=== PATIENT | male | born 1960 | race Caucasian/White ===

== ENCOUNTER 2020-09-27 12:18 | Observation (INO) | payer BC ==
[2020-09-27] MEDS ORDERED: Sodium Chloride 0.9% 1,000 ML IV ONE (12:28)
[2020-09-27] MEDS ORDERED: Iopamidol 612 MG/ML 100 ML Bottle IVPUSH ONE ×2 (12:34→14:13)
[2020-09-27] MEDS ORDERED: Sodium Chloride 0.9% 10 ML Syringe FLUSH PRN ×2 (12:42→14:13)
--- NOTE | 2020-09-27 13:24 | CT ---
CT chest Technique: Multiple axial sections were obtained from above the lung apices inferiorly through the lung bases. Intravenous contrast was utilized. Reconstructed coronal and sagittal images were obtained. Comparison: No prior chest CT study, previous chest x-ray of 01/11/18. Findings: Ascending thoracic aorta shows mildly prominent dimension at 4.0 cm. Descending thoracic aorta measures within normal limits. There is coronary artery calcification seen which appears to be mild. Mediastinum and hilar regions show no adenopathy. No pericardial thickening is seen. There is a vague low density lesion within the upper right lobe of the liver measuring 3.9 cm. Given presence of rib fractures on the right side which are described below this most likely represents a small intraparenchymal liver laceration. Other visualized upper abdominal structures appear within normal limits. Slight atelectasis is seen within the anterior right upper lung. Very slight areas of increased density are seen within the right lung base and right middle lobe which are most likely due to areas of atelectasis. Minimal atelectasis is also noted within the lingula. No pneumothorax is seen. Lungs otherwise are clear with no acute parenchymal change. Prior sternotomy is noted. Bone window settings were obtained. Fractures are noted within the right third through seventh ribs. Fractures show some displacement. No left-sided rib fracture is appreciated. Slight compression deformities are seen within the lower thoracic spine which are felt to be old. Impression: 1. Fractures within the right third through seventh ribs showing mild displacement. 2. Mild areas of atelectasis within the chest. 3. Mild compression deformities within the lower thoracic spine which are felt to be old. 4. Ascending aorta is mildly ectatic at 4.0 cm. 5. Vague low density finding within the upper liver which is nonspecific but given rib fractures this could represent a minimal intraparenchymal laceration measuring 3.9 cm. This finding is felt to represent a grade 2 injury. 6. No findings of pneumothorax or pleural effusions are seen within the chest. Diagnostic code #3
--- NOTE | 2020-09-27 13:46 | EDM.PDOC ---
ED HPI GENERAL MEDICAL PROBLEM - General Chief Complaint: Trauma Stated Complaint: [facility] Time Seen by Provider: 09/27/20 12:27 Source of Information: Reports: Patient, EMS Notes Reviewed History Limitations: Reports: No Limitations - History of Present Illness INITIAL COMMENTS - FREE TEXT/NARRATIVE: Patient presents with blunt chest trauma. Patient was working under his 1 ton pickup and had a rigged up with some change to hold it up. He had put some tire stands underneath just in case to make sure if it would not fall on him. He was doing some welding on the back and and unfortunately the chain broke causing the spring and axles to actually come down on him on his right-sided chest. It broke the lidia that he was laying on. He had lost his breath, no syncope however developed a lot of sweating and diaphoresis. He initially went to the clinic for evaluation and on arrival they were initially worried his vision was low. It returned back to normal after a few minutes and was sent by ambulance here for evaluation. Patient has had a history of coronary bypass graft he can continues to have right-sided rib pain. No lightheadedness or dizziness no he adache no nausea or vomiting no neck pain no numbness tingling or weakness nauseated earlier but not now no vomiting or diarrhea denies any abdominal pain no pelvic pain or extremity injury he does complain of some posterior shoulder blade pain more on the left side than the right side in the back. No numbness tingling or weakness to lower extremities. Chest Pain Score (Numeric/FACES): 3 - Related Data Allergies Allergy/AdvReac Type Severity Reaction Status Date / Time No Known Allergies Allergy Verified 09/27/20 12:29 Home Meds: Home Meds Aspirin [Ecotrin] 81 mg PO DAILY 02/05/18 [History] Clopidogrel Bisulfate [Plavix] 75 mg PO DAILY 02/05/18 [History] Docusate Sodium [Colace] 100 mg PO BID PRN 02/05/18 [History] Glucosamine [Glucosamine Sulfate] 1 cap PO DAILY 02/05/18 [History] Metoprolol Tartrate 12.5 mg PO BID 02/05/18 [History] atorvaSTATin [Lipitor] 20 mg PO BEDTIME 02/05/18 [History] Past Medical History Cardiovascular History: Reports: [place], [place] Musculoskeletal History: Reports: Fracture - Past Surgical History GI Surgical History: Reports: Appendectomy Musculoskeletal Surgical History: Reports: ORIF Social & Family History - Tobacco Use Tobacco Use Status *Q: Never Tobacco User Review of Systems - Review of Systems Review Of Systems: See Below Constitutional: Reports: Diaphoresis Eyes: Denies: Vision Change Ears: Reports: No Symptoms Nose: Reports: No Symptoms Mouth/Throat: Reports: No Symptoms Respiratory: Reports: Shortness of Breath, Pleuritic Chest Pain Cardiovascular: Reports: Chest Pain, Lightheadedness. Denies: Syncope GI/Abdominal: Denies: Abdominal Pain, Diarrhea, Nausea, Vomiting Genitourinary: Denies: Dysuria, Hematuria Musculoskeletal: Reports: Back Pain. Denies: Neck Pain Neurological: Reports: Dizziness. Denies: Headache Psychiatric: Reports: No Symptoms ED EXAM, GENERAL - Physical Exam Exam: See Below Exam Limited By: No Limitations General Appearance: Alert, WD/WN, No Apparent Distress, Mild Distress Eye Exam: Bilateral Eye: EOMI, PERRL Ears: Normal TMs Throat/Mouth: Normal Oropharynx Head: Atraumatic, Normocephalic Neck: Normal Inspection, Supple, Non-Tender, Full Range of Motion. No: Tender Lateral, Tender Midline Respiratory/Chest: No Respiratory Distress, Decreased Breath Sounds, Splinting. No: Rales, Rhonchi Cardiovascular: Normal Peripheral Pulses, Regular Rate, Rhythm, No Edema Peripheral Pulses: 2+: Radial (L), Radial (R) GI/Abdominal: Normal Bowel Sounds, Soft, Non-Tender, No Organomegaly, Pelvis Stable. No: Hepatomegaly Back Exam: Normal Inspection, Paraspinal Tenderness. No: CVA Tenderness (L), CVA Tenderness (R) Extremities: Normal Inspection, Normal Range of Motion Neurological: Alert, Oriented, CN II-XII Intact Psychiatric: Normal Affect Skin Exam: Warm #1 Interpretation EKG Date: 09/27/20 Time: 13:01 Rhythm: NSR Rate (Beats/Min): 79 EKG Interpretation Comments: I reviewed EKG showing sinus rhythm rate of 79 W[place] 176 QRS 1.7 QT corrected 455 Right bundle branch block pattern, nonspecific ST changes noted in the anterior lateral leads PVC noted Course - Vital Signs Text/Narrative:: Trauma alert based on mechanism, initial evaluation had patient go to the CT scanner to rule out chest trauma. Is mainly complaining of anterior lateral chest pain. He was not complaining of any increasing shortness of breath or abdominal pain. Rule out for intrathoracic blunt chest trauma, great vessel injury, rib fractures or sternal fractures, pelvis was stable he did have some right scapular pain. CT scan came back positive for rib fractures question for liver lack would send him back for a formal CT abdomen pelvis. Vital signs are otherwise stable. With 4+ rib fractures and rule out for pulmonary contusion and liver lack will consider hospitalization whether it is here or at a trauma center. I did discuss the case with the trauma surgeon and will need to transfer if there is combination injuries especially liver laceration. Last Recorded V/S: Last Vital Signs Temp 97.3 F 09/27/20 12:25 Pulse 83 09/27/20 12:25 Resp 16 09/27/20 12:25 BP 120/87 09/27/20 12:25 Pulse Ox 83 L 09/27/20 12:25 - Orders/Labs/Meds Orders: Active Orders 24 hr Category Date Time Status EKG Documentation Completion [RC] ASDIRECTED Care 09/27/20 12:28 Active LACTIC ACID [CHEM] Stat Lab 09/27/20 14:38 Ordered UA RFX PAOLO AND CULT IF INDIC [URIN] Stat Lab 09/27/20 14:28 Ordered Sodium Chloride 0.9% [Saline Flush] Med 09/27/20 12:42 Active 10 ml FLUSH ONETIME PRN Sodium Chloride 0.9% [Saline Flush] Med 09/27/20 14:13 Active 10 ml FLUSH ONETIME PRN EKG 12 Lead [EK] Stat Ther 09/27/20 12:27 Ordered Medication Orders Sodium Chloride (Sodium Chloride 0.9% 10 Ml Syringe) 10 ml FLUSH ONETIME PRN PRN Reason: IV FLUSH Last Admin: 09/27/20 14:24 Dose: 10 ml Documented by: JOVI Sodium Chloride (Sodium Chloride 0.9% 10 Ml Syringe) 10 ml FLUSH ONETIME PRN PRN Reason: IV FLUSH Last Admin: 09/27/20 14:17 Dose: 10 ml Documented by: TAYLOR Labs: Laboratory Tests 09/27/20 09/27/20 09/27/20 Range/Units 12:33 12:33 12:33 WBC 18.50 H (4.23-9.07) K/mm3 RBC 5.53 (4.63-6.08) M/mm3 Hgb 15.6 (13.7-17.5) gm/dl Hct 46.6 (40.1-51.0) % MCV 84.3 (79.0-92.2) fl MCH 28.2 (25.7-32.2) pg MCHC 33.5 (32.2-35.5) g/dl RDW Std Deviation 40.9 (35.1-43.9) fL Plt Count 318 (163-337) K/mm3 MPV 9.0 L (9.4-12.3) fl Neut % (Auto) 87.5 H (34.0-67.9) % Lymph % (Auto) 6.8 L (21.8-53.1) % Talbot % (Auto) 5.0 L (5.3-12.2) % Eos % (Auto) 0.1 L (0.8-7.0) Baso % (Auto) 0.2 (0.1-1.2) % Neut # (Auto) 16.17 H (1.78-5.38) K/mm3 Lymph # (Auto) 1.26 L (1.32-3.57) K/mm3 Talbot # (Auto) 0.93 H (0.30-0.82) K/mm3 Eos # (Auto) 0.02 L (0.04-0.54) K/mm3 Baso # (Auto) 0.04 (0.01-0.08) K/mm3 Lactic Acid 2.2 H* (0.4-2.0) mmol/L Troponin I < 0.017 (0.00-0.056) ng/mL White count 18,500 hemoglobin 15 hematocrit 46 platelet count is 318,016 neutrophils lactic acid 2.2 troponin is negative Meds: Medications Generic Name Dose Route Start Last Admin Trade Name Freq PRN Reason Stop Dose Admin Sodium Chloride 10 ml 09/27/20 12:42 09/27/20 14:24 Sodium Chloride 0.9% 10 Ml Syringe FLUSH 10 ml ONETIME PRN Administration IV FLUSH Sodium Chloride 10 ml 09/27/20 14:13 09/27/20 14:17 Sodium Chloride 0.9% 10 Ml Syringe FLUSH 10 ml ONETIME PRN Administration IV FLUSH Discontinued Medications Generic Name Dose Route Start Last Admin Trade Name Freq PRN Reason Stop Dose Admin Sodium Chloride 1,000 mls @ 999 mls/hr 09/27/20 12:28 09/27/20 14:23 Normal Saline IV 09/27/20 13:28 999 mls/hr ONETIME ONE Administration Iopamidol 80 ml 09/27/20 12:34 Iopamidol 612 Mg/Ml 100 Ml Bottle IVPUSH 09/27/20 12:35 ONETIME ONE Iopamidol 50 ml 09/27/20 14:13 09/27/20 14:17 Iopamidol 612 Mg/Ml 50 Ml Sdv IVPUSH 09/27/20 14:14 50 ml ONETIME ONE Administration Iopamidol 100 ml 09/27/20 14:13 09/27/20 14:17 Iopamidol 612 Mg/Ml 100 Ml Bottle IVPUSH 09/27/20 14:14 100 ml ONETIME ONE Administration - Radiology Interpretation Free Text/Narrative:: Reviewed trauma CT report showing ascending thoracic aorta shows mild prominent dimension at 4 cm descending thoracic order measures within normal limits cardiac coronary artery calcification appears to be mild mediastinum hilar regions show no adenopathy no pericardial thickening seen vague low density in the right upper lobe of the liver measuring 3.9 cm given the presence of rib fracture on the right side which are described below this most likely represent presents small parenchymal liver laceration other upper abdominal structures appear normal slight atelectasis is seen in the right anterior upper lung very some slight areas of increased density are seen with the right lung base and right middle lobe which most likely due to areas of atelectasis no pneumothorax noted lungs otherwise clear no acute parenchymal changes prior sternotomy noted fractures are noted in the right third through seventh ribs with some fracture showing some displacement no left-sided rib fractures are noted compression fracture deformity noted to the thoracic spine although appear to be old. CT abdomen pelvis showed more of a liver lesion on the dome of the right lobe this abnormally becomes less apparent on delayed images which makes a primary liver lesion most likely this is most likely due to a hemangioma rather than liver laceration atelectasis in the right lung base noted otherwise no other acute findings noted. CT Results Date: 09/27/20 CT Results Time: 13:16 - Re-Assessments/Exams Free Text/Narrative Re-Assessment/Exam: 09/27/20 15:23 Patient continues to be hemodynamically Imer stable, he is not requesting anything for pain at present. Discussed the case with surgery Dr. Bravo and she agrees to accept patient for admission and will be and evaluate the patient. Departure - Departure Time of Disposition: 15:30 Disposition: Admitted As Inpatient 67 Condition: Fair Clinical Impression: Contusion of back Qualifiers: Encounter type: subsequent encounter Laterality: right Qualified Code(s): S20.221D - Contusion of right back wall of thorax, subsequent encounter Contusion of chest wall Qualifiers: Encounter type: subsequent encounter Laterality: right Qualified Code(s): S20.211D - Contusion of right front wall of thorax, subsequent encounter Fracture of multiple ribs Qualifiers: Encounter type: subsequent encounter Fracture type: closed Laterality: right Fracture healing: with routine healing Qualified Code(s): S22.41XD - Multiple fractures of ribs, right side, subsequent encounter for fracture with routine healing - Discharge Information Referrals: PCP,None [Primary Care Provider] - Forms: ED Department Discharge Sepsis Event Note (ED) - Evaluation Sepsis Screening Result: No Definite Risk - Focused Exam Vital Signs: Vital Signs Temp Pulse Resp BP Pulse Ox 09/27/20 12:25 97.3 F 83 16 120/87 83 L - My Orders Last 24 Hours: My Active Orders 09/27/20 12:27 EKG 12 Lead [EK] Stat 09/27/20 12:28 EKG Documentation Completion [RC] ASDIRECTED 09/27/20 12:42 Sodium Chloride 0.9% [Saline Flush] 10 ml FLUSH ONETIME PRN 09/27/20 14:13 Sodium Chloride 0.9% [Saline Flush] 10 ml FLUSH ONETIME PRN 09/27/20 14:28 UA RFX PAOLO AND CULT IF INDIC [URIN] Stat 09/27/20 14:38 LACTIC ACID [CHEM] Stat - Assessment/Plan Last 24 Hours: My Active Orders 09/27/20 12:27 EKG 12 Lead [EK] Stat 09/27/20 12:28 EKG Documentation Completion [RC] ASDIRECTED 09/27/20 12:42 Sodium Chloride 0.9% [Saline Flush] 10 ml FLUSH ONETIME PRN 09/27/20 14:13 Sodium Chloride 0.9% [Saline Flush] 10 ml FLUSH ONETIME PRN 09/27/20 14:28 UA RFX PAOLO AND CULT IF INDIC [URIN] Stat 09/27/20 14:38 LACTIC ACID [CHEM] Stat
[2020-09-27] MEDS ORDERED: Iopamidol 612 MG/ML 50 ML SDV IVPUSH ONE (14:13)
--- NOTE | 2020-09-27 14:32 | CT ---
CT abdomen and pelvis Technique: Multiple axial sections were obtained from above the dome of the diaphragm inferiorly through the pubic symphysis. Intravenous and oral contrast was utilized. Delayed images were also obtained through the abdomen and pelvis. Reconstructed coronal and sagittal images were also obtained. Findings: Atelectasis is noted within the right lung base. Low density lesion is noted within the dome of the right lobe of the liver. On delayed images this disappears which is somewhat unusual for a laceration. Difficult to exclude a primary liver lesion. Other portions of the liver appear within normal limits. Gallbladder contains no calcified gallstones. Spleen appears normal. No abnormality is seen within the pancreas. Adrenal glands show no nodule. Kidneys show symmetric contrast enhancement with no hydronephrosis or mass being seen. Abdominal aorta shows no aneurysm. No retroperitoneal adenopathy or mesenteric abnormalities are seen. Appendix is seen which is normal. No pelvic mass or adenopathy is seen. No free fluid or inflammatory change is appreciated. Delayed images show contrast within the ureters and within the bladder. Bone window settings were reviewed which show scattered degenerative change within the spine. No acute osseous abnormality is appreciated. Impression: 1. Liver lesion within the dome of the right lobe. This abnormality becomes less apparent on delayed images which makes a primary liver lesion most likely. This is most likely due to hemangioma rather than liver laceration. 2. Atelectasis within the right lung base. 3. Nothing acute is otherwise seen on CT study of the abdomen and pelvis. Diagnostic code #2
--- NOTE | 2020-09-27 16:08 | PCM.HP.2 ---
<Fahad Polo - Last Filed: 09/27/20 16:12> H&P History of Present Illness - Related Data Allergies/Adverse Reactions: Allergies Allergy/AdvReac Type Severity Reaction Status Date / Time No Known Allergies Allergy Verified 09/27/20 12:29 Home Medications: Home Meds Aspirin [Ecotrin] 81 mg PO DAILY 02/05/18 [History] Clopidogrel Bisulfate [Plavix] 75 mg PO DAILY 02/05/18 [History] Docusate Sodium [Colace] 100 mg PO BID PRN 02/05/18 [History] Glucosamine [Glucosamine Sulfate] 1 cap PO DAILY 02/05/18 [History] Metoprolol Tartrate 12.5 mg PO BID 02/05/18 [History] atorvaSTATin [Lipitor] 20 mg PO BEDTIME 02/05/18 [History] Exam - Vital Signs Vital Signs: Last Vital Signs Temp 97.3 F 09/27/20 12:25 Pulse 83 09/27/20 12:25 Resp 16 09/27/20 12:25 BP 120/87 09/27/20 12:25 Pulse Ox 83 L 09/27/20 12:25 - Patient Data Lab Results Last 24 hrs: Laboratory Results - last 24 hr 09/27/20 09/27/20 09/27/20 Range/Units 12:33 12:33 12:33 WBC 18.50 H (4.23-9.07) K/mm3 RBC 5.53 (4.63-6.08) M/mm3 Hgb 15.6 (13.7-17.5) gm/dl Hct 46.6 (40.1-51.0) % MCV 84.3 (79.0-92.2) fl MCH 28.2 (25.7-32.2) pg MCHC 33.5 (32.2-35.5) g/dl RDW Std Deviation 40.9 (35.1-43.9) fL Plt Count 318 (163-337) K/mm3 MPV 9.0 L (9.4-12.3) fl Neut % (Auto) 87.5 H (34.0-67.9) % Lymph % (Auto) 6.8 L (21.8-53.1) % [place] % (Auto) 5.0 L (5.3-12.2) % Eos % (Auto) 0.1 L (0.8-7.0) Baso % (Auto) 0.2 (0.1-1.2) % Neut # (Auto) 16.17 H (1.78-5.38) K/mm3 Lymph # (Auto) 1.26 L (1.32-3.57) K/mm3 [place] # (Auto) 0.93 H (0.30-0.82) K/mm3 Eos # (Auto) 0.02 L (0.04-0.54) K/mm3 Baso # (Auto) 0.04 (0.01-0.08) K/mm3 Lactic Acid 2.2 H* (0.4-2.0) mmol/L Troponin I < 0.017 (0.00-0.056) ng/mL 09/27/20 Range/Units 14:53 WBC (4.23-9.07) K/mm3 RBC (4.63-6.08) M/mm3 Hgb (13.7-17.5) gm/dl Hct (40.1-51.0) % MCV (79.0-92.2) fl MCH (25.7-32.2) pg MCHC (32.2-35.5) g/dl RDW Std Deviation (35.1-43.9) fL Plt Count (163-337) K/mm3 MPV (9.4-12.3) fl Neut % (Auto) (34.0-67.9) % Lymph % (Auto) (21.8-53.1) % [place] % (Auto) (5.3-12.2) % Eos % (Auto) (0.8-7.0) Baso % (Auto) (0.1-1.2) % Neut # (Auto) (1.78-5.38) K/mm3 Lymph # (Auto) (1.32-3.57) K/mm3 [place] # (Auto) (0.30-0.82) K/mm3 Eos # (Auto) (0.04-0.54) K/mm3 Baso # (Auto) (0.01-0.08) K/mm3 Lactic Acid 2.2 H* (0.4-2.0) mmol/L Troponin I (0.00-0.056) ng/mL Result Diagrams: 09/27/20 12:33 Sepsis Event Note - Focused Exam Vital Signs: Vital Signs Temp Pulse Resp BP Pulse Ox 09/27/20 12:25 97.3 F 83 16 120/87 83 L Orders Last 24hrs: Active Orders 24 hr Category Date Time Status EKG Documentation Completion [RC] ASDIRECTED Care 09/27/20 12:28 Active UA RFX PAOLO AND CULT IF INDIC [URIN] Stat Lab 09/27/20 14:28 Ordered Sodium Chloride 0.9% [Saline Flush] Med 09/27/20 12:42 Active 10 ml FLUSH ONETIME PRN Sodium Chloride 0.9% [Saline Flush] Med 09/27/20 14:13 Active 10 ml FLUSH ONETIME PRN EKG 12 Lead [EK] Stat Ther 09/27/20 12:27 Ordered Medication Orders Sodium Chloride (Sodium Chloride 0.9% 10 Ml Syringe) 10 ml FLUSH ONETIME PRN PRN Reason: IV FLUSH Last Admin: 09/27/20 14:24 Dose: 10 ml Documented by: JOVI Sodium Chloride (Sodium Chloride 0.9% 10 Ml Syringe) 10 ml FLUSH ONETIME PRN PRN Reason: IV FLUSH Last Admin: 09/27/20 14:17 Dose: 10 ml Documented by: TAYLOR <Annabelle Fernandez - Last Filed: 09/27/20 16:41> H&P History of Present Illness - General Date of Service: 09/27/20 Source of Information: Patient, Provider History Limitations: Reports: No Limitations - History of Present Illness Initial Comments - Free Text/Narative: The patient is a 60 y/o gentleman who presents after a blunt crushing injury to the torso. He reports having his truck elevated with chains and was working underneath the vehicle when it dropped on him, crushing the rolling creeper he was laying on. He presented to the outpatient clinic for evaluation, reporting that he was concerned about his heart, since he has a history of a CABG 3 years ago. He reports some difficulty in taking a deep breath. He was ambulating after the event. He He was evaluated by the ED provider with a CT of the chest, abdomen and pelvis. He was found to have right rib fractures for ribs 3-7 with some atelectasis. No pleural effusion, lung contusion or pneumothorax noted. Chest Pain Score (Numeric/FACES): 3 Past Medical History Cardiovascular History: Reports: Bypass, [place] Musculoskeletal History: Reports: Fracture - Past Surgical History GI Surgical History: Reports: Appendectomy Musculoskeletal Surgical History: Reports: ORIF Social & Family History - Tobacco Use Tobacco Use Status *Q: Never Tobacco User H&P Review of Systems - Review of Systems: Review Of Systems: See Below General: Reports: No Symptoms HEENT: Reports: No Symptoms Pulmonary: Reports: No Symptoms Cardiovascular: Reports: No Symptoms Gastrointestinal: Reports: No Symptoms Genitourinary: Reports: No Symptoms Musculoskeletal: Reports: No Symptoms Skin: Reports: No Symptoms Psychiatric: Reports: No Symptoms Neurological: Reports: No Symptoms Hematologic/Lymphatic: Reports: No Symptoms Exam - Exam Exam: See Below - Vital Signs Vital Signs: Last Vital Signs Temp 36.3 C 09/27/20 12:25 Pulse 83 09/27/20 12:25 Resp 16 09/27/20 12:25 BP 120/87 09/27/20 12:25 Pulse Ox 83 L 09/27/20 12:25 - Exam Quality Assessment: Supplemental Oxygen General: Alert, Oriented HEENT: Conjunctiva Clear, EOMI Neck: Supple Lungs: Rales (on right posterior lung flood), Wheezing (on right posterior lung flood). No: Normal Respiratory Effort (shallow breathing) Cardiovascular: Regular Rate, Regular Rhythm, Normal S1, Normal S2 GI/Abdominal Exam: Soft, Non-Tender, No Distention Back Exam: Normal Inspection. No: Vertebral Tenderness Skin: Warm, Dry, Intact. No: Ecchymosis Neurological: Cranial Nerves Intact Neuro Extensive - Mental Status: Normal Mood/Affect - Patient Data Lab Results Last 24 hrs: Laboratory Results - last 24 hr 09/27/20 09/27/20 09/27/20 Range/Units 12:33 12:33 12:33 WBC 18.50 H (4.23-9.07) K/mm3 RBC 5.53 (4.63-6.08) M/mm3 Hgb 15.6 (13.7-17.5) gm/dl Hct 46.6 (40.1-51.0) % MCV 84.3 (79.0-92.2) fl MCH 28.2 (25.7-32.2) pg MCHC 33.5 (32.2-35.5) g/dl RDW Std Deviation 40.9 (35.1-43.9) fL Plt Count 318 (163-337) K/mm3 MPV 9.0 L (9.4-12.3) fl Neut % (Auto) 87.5 H (34.0-67.9) % Lymph % (Auto) 6.8 L (21.8-53.1) % [place] % (Auto) 5.0 L (5.3-12.2) % Eos % (Auto) 0.1 L (0.8-7.0) Baso % (Auto) 0.2 (0.1-1.2) % Neut # (Auto) 16.17 H (1.78-5.38) K/mm3 Lymph # (Auto) 1.26 L (1.32-3.57) K/mm3 [place] # (Auto) 0.93 H (0.30-0.82) K/mm3 Eos # (Auto) 0.02 L (0.04-0.54) K/mm3 Baso # (Auto) 0.04 (0.01-0.08) K/mm3 Lactic Acid 2.2 H* (0.4-2.0) mmol/L Troponin I < 0.017 (0.00-0.056) ng/mL 09/27/20 Range/Units 14:53 WBC (4.23-9.07) K/mm3 RBC (4.63-6.08) M/mm3 Hgb (13.7-17.5) gm/dl Hct (40.1-51.0) % MCV (79.0-92.2) fl MCH (25.7-32.2) pg MCHC (32.2-35.5) g/dl RDW Std Deviation (35.1-43.9) fL Plt Count (163-337) K/mm3 MPV (9.4-12.3) fl Neut % (Auto) (34.0-67.9) % Lymph % (Auto) (21.8-53.1) % [place] % (Auto) (5.3-12.2) % Eos % (Auto) (0.8-7.0) Baso % (Auto) (0.1-1.2) % Neut # (Auto) (1.78-5.38) K/mm3 Lymph # (Auto) (1.32-3.57) K/mm3 [place] # (Auto) (0.30-0.82) K/mm3 Eos # (Auto) (0.04-0.54) K/mm3 Baso # (Auto) (0.01-0.08) K/mm3 Lactic Acid 2.2 H* (0.4-2.0) mmol/L Troponin I (0.00-0.056) ng/mL Result Diagrams: 09/27/20 12:33 Sepsis Event Note - Evaluation Sepsis Screening Result: No Definite Risk - Focused Exam Vital Signs: Vital Signs Temp Pulse Resp BP Pulse Ox 09/27/20 12:25 36.3 C 83 16 120/87 83 L *Q Meaningful Use (ADM) - VTE Risk Assess *Q Each Risk Factor Represents 1 Point: Age 41 - 59 years, Obesity ( BMI > 25 kg/m2) Total Score 1 Point Risk Factors: 2 Each Risk Factor Represents 5 Points: Multiple Trauma, Less than 1 Month Total Score 5 Point Risk Factors: 5 - Problem List (1) Contusion of back SNOMED Code(s): 86825754 ICD Code: S20.229A - CONTUSION OF UNSPECIFIED BACK WALL OF THORAX, INIT ENCNTR Status: Acute Current Visit: Yes Qualifiers: Encounter type: subsequent encounter Laterality: right Qualified Code(s): S20.221D - Contusion of right back wall of thorax, subsequent encounter (2) Contusion of chest wall SNOMED Code(s): 03618051 ICD Code: S20.219A - CONTUSION OF UNSPECIFIED FRONT WALL OF THORAX, INIT ENCNTR Status: Acute Current Visit: Yes Qualifiers: Encounter type: subsequent encounter Laterality: right Qualified Code(s): S20.211D - Contusion of right front wall of thorax, subsequent encounter (3) Fracture of multiple ribs SNOMED Code(s): 1376737 ICD Code: S22.49XA - MULTIPLE FRACTURES OF RIBS, UNSP SIDE, INIT FOR CLOS FX Status: Acute Current Visit: Yes Qualifiers: Encounter type: subsequent encounter Fracture type: closed Laterality: right Fracture healing: with routine healing Qualified Code(s): S22.41XD - Multiple fractures of ribs, right side, subsequent encounter for fracture with routine healing Problem List Initiated/Reviewed/Updated: Yes Orders Last 24hrs: Active Orders 24 hr Category Date Time Status EKG Documentation Completion [RC] ASDIRECTED Care 09/27/20 12:28 Active UA RFX PAOLO AND CULT IF INDIC [URIN] Stat Lab 09/27/20 14:28 Ordered Sodium Chloride 0.9% [Saline Flush] Med 09/27/20 12:42 Active 10 ml FLUSH ONETIME PRN Sodium Chloride 0.9% [Saline Flush] Med 09/27/20 14:13 Active 10 ml FLUSH ONETIME PRN EKG 12 Lead [EK] Stat Ther 09/27/20 12:27 Ordered Medication Orders Sodium Chloride (Sodium Chloride 0.9% 10 Ml Syringe) 10 ml FLUSH ONETIME PRN PRN Reason: IV FLUSH Last Admin: 09/27/20 14:24 Dose: 10 ml Documented by: JOVI Sodium Chloride (Sodium Chloride 0.9% 10 Ml Syringe) 10 ml FLUSH ONETIME PRN PRN Reason: IV FLUSH Last Admin: 09/27/20 14:17 Dose: 10 ml Documented by: TAYLOR Assessment/Plan Comment:: 60 y/o gentleman with right rib fractures after crush injury to torso. With established atelectasis, at risk for contusion - recommend observation stay for pain control and monitoring of O2 levels - wean O2 as tolerated - incentive spirometer q1hr - PO pain medication - may have regular diet Annabelle Fernandez MD General surgery
[2020-09-27] MEDS ORDERED: Acetaminophen/oxyCODONE 325-5 MG Tab PO PRN (19:57)
[2020-09-27] MEDS ORDERED: Ondansetron 4 MG Tab.DIS PO PRN (19:59)
[2020-09-27] MEDS ORDERED: HYDROmorphone 0.5 MG/0.5 ML Syringe IVPUSH PRN (19:59)
[2020-09-27] MEDS: Ibuprofen 600 MG Tab PO PRN (20:37)
[2020-09-28] MEDS: Ibuprofen 600 MG Tab PO PRN (04:29)
--- NOTE | 2020-09-28 07:42 | PCM.SURGPN ---
- General Info Date of Service: 09/28/20 Admission Diagnosis/Problem: Rib injury Functional Status: Reports: Pain Controlled, Tolerating Diet, Incentive Spirometry - Patient Data Vitals - Most Recent: Last Vital Signs Temp 36.7 C 09/28/20 04:08 Pulse 65 09/28/20 04:08 Resp 16 09/28/20 04:08 BP 143/81 H 09/28/20 04:08 Pulse Ox 97 09/28/20 04:08 Weight - Most Recent: 126.598 kg I&O - Last 24 Hours: Intake & Output 09/27/20 09/28/20 09/28/20 22:59 06:59 14:59 Intake Total 500 Balance 500 Lab Results Last 24 Hrs: Laboratory Results - last 24 hr 09/27/20 09/27/20 09/27/20 Range/Units 12:33 12:33 12:33 WBC 18.50 H (4.23-9.07) K/mm3 RBC 5.53 (4.63-6.08) M/mm3 Hgb 15.6 (13.7-17.5) gm/dl Hct 46.6 (40.1-51.0) % MCV 84.3 (79.0-92.2) fl MCH 28.2 (25.7-32.2) pg MCHC 33.5 (32.2-35.5) g/dl RDW Std Deviation 40.9 (35.1-43.9) fL Plt Count 318 (163-337) K/mm3 MPV 9.0 L (9.4-12.3) fl Neut % (Auto) 87.5 H (34.0-67.9) % Lymph % (Auto) 6.8 L (21.8-53.1) % [place] % (Auto) 5.0 L (5.3-12.2) % Eos % (Auto) 0.1 L (0.8-7.0) Baso % (Auto) 0.2 (0.1-1.2) % Neut # (Auto) 16.17 H (1.78-5.38) K/mm3 Lymph # (Auto) 1.26 L (1.32-3.57) K/mm3 [place] # (Auto) 0.93 H (0.30-0.82) K/mm3 Eos # (Auto) 0.02 L (0.04-0.54) K/mm3 Baso # (Auto) 0.04 (0.01-0.08) K/mm3 Lactic Acid 2.2 H* (0.4-2.0) mmol/L Troponin I < 0.017 (0.00-0.056) ng/mL Urine Color (Yellow) Urine Appearance (Clear) Urine pH (5.0-8.0) Ur Specific [place] (1.005-1.030) Urine Protein (Negative) Urine Glucose (UA) (Negative) Urine Ketones (Negative) Urine Occult Blood (Negative) Urine Nitrite (Negative) Urine Bilirubin (Negative) Urine Urobilinogen (0.2-1.0) Ur Leukocyte Esterase (Negative) Urine RBC (0-5) /hpf Urine WBC (0-5) /hpf Ur Epithelial Cells (0-5) /hpf Urine Bacteria (FEW) /hpf Urine Mucus (FEW) /hpf SARS-CoV-2 RNA (JORGE A) (NEGATIVE) 09/27/20 09/27/20 09/28/20 Range/Units 14:53 17:43 04:15 WBC (4.23-9.07) K/mm3 RBC (4.63-6.08) M/mm3 Hgb (13.7-17.5) gm/dl Hct (40.1-51.0) % MCV (79.0-92.2) fl MCH (25.7-32.2) pg MCHC (32.2-35.5) g/dl RDW Std Deviation (35.1-43.9) fL Plt Count (163-337) K/mm3 MPV (9.4-12.3) fl Neut % (Auto) (34.0-67.9) % Lymph % (Auto) (21.8-53.1) % [place] % (Auto) (5.3-12.2) % Eos % (Auto) (0.8-7.0) Baso % (Auto) (0.1-1.2) % Neut # (Auto) (1.78-5.38) K/mm3 Lymph # (Auto) (1.32-3.57) K/mm3 [place] # (Auto) (0.30-0.82) K/mm3 Eos # (Auto) (0.04-0.54) K/mm3 Baso # (Auto) (0.01-0.08) K/mm3 Lactic Acid 2.2 H* (0.4-2.0) mmol/L Troponin I (0.00-0.056) ng/mL Urine Color Yellow (Yellow) Urine Appearance Clear (Clear) Urine pH 6.0 (5.0-8.0) Ur Specific [place] > or = 1.030 (1.005-1.030) Urine Protein Trace H (Negative) Urine Glucose (UA) Negative (Negative) Urine Ketones Negative (Negative) Urine Occult Blood Negative (Negative) Urine Nitrite Negative (Negative) Urine Bilirubin Negative (Negative) Urine Urobilinogen 0.2 (0.2-1.0) Ur Leukocyte Esterase Negative (Negative) Urine RBC Not seen (0-5) /hpf Urine WBC 0-5 (0-5) /hpf Ur Epithelial Cells Not seen (0-5) /hpf Urine Bacteria Few (FEW) /hpf Urine Mucus Many H (FEW) /hpf SARS-CoV-2 RNA (JORGE A) Negative (NEGATIVE) Med Orders - Current: Current Medications Hydromorphone HCl (Hydromorphone 0.5 Mg/0.5 Ml Syringe) 0.5 mg IVPUSH Q2H PRN PRN Reason: Breakthrough Pain Ibuprofen (Ibuprofen 600 Mg Tab) 600 mg PO Q6H PRN PRN Reason: Pain (mild 1-3) Last Admin: 09/28/20 04:29 Dose: 600 mg Documented by: Ondansetron HCl (Ondansetron 4 Mg Tab.Dis) 4 mg PO Q6H PRN PRN Reason: Nausea/Vomiting Oxycodone/Acetaminophen (Acetaminophen/Oxycodone 325-5 Mg Tab) 0 tab PO Q4H PRN PRN Reason: Pain (moderate 4-6) Sodium Chloride (Sodium Chloride 0.9% 10 Ml Syringe) 10 ml FLUSH ONETIME PRN PRN Reason: IV FLUSH Last Admin: 09/27/20 14:17 Dose: 10 ml Documented by: Discontinued Medications Sodium Chloride (Normal Saline) 1,000 mls @ 999 mls/hr IV ONETIME ONE Stop: 09/27/20 13:28 Last Admin: 09/27/20 14:23 Dose: 999 mls/hr Documented by: Iopamidol (Iopamidol 612 Mg/Ml 100 Ml Bottle) 80 ml IVPUSH ONETIME ONE Stop: 09/27/20 12:35 Last Admin: 09/27/20 19:54 Dose: Not Given Documented by: Iopamidol (Iopamidol 612 Mg/Ml 50 Ml Sdv) 50 ml IVPUSH ONETIME ONE Stop: 09/27/20 14:14 Last Admin: 09/27/20 14:17 Dose: 50 ml Documented by: Iopamidol (Iopamidol 612 Mg/Ml 100 Ml Bottle) 100 ml IVPUSH ONETIME ONE Stop: 09/27/20 14:14 Last Admin: 09/27/20 14:17 Dose: 100 ml Documented by: Sodium Chloride (Sodium Chloride 0.9% 10 Ml Syringe) 10 ml FLUSH ONETIME PRN PRN Reason: IV FLUSH Last Admin: 09/27/20 14:24 Dose: 10 ml Documented by: - Exam Wound/Incisions: Healing Well General: Alert, Oriented HEENT: Pupils Equal, EOMI Lungs: Normal Respiratory Effort Skin: Intact. No: Ecchymosis Sepsis Event Note - Evaluation Sepsis Screening Result: No Definite Risk - Focused Exam Vital Signs: Vital Signs Temp Pulse Resp BP Pulse Ox 09/28/20 04:08 36.7 C 65 16 143/81 H 97 09/27/20 19:54 36.7 C 86 16 125/73 96 - Problem List & Annotations (1) Contusion of back SNOMED Code(s): 60441261 Code(s): S20.229A - CONTUSION OF UNSPECIFIED BACK WALL OF THORAX, INIT ENCNTR Status: Acute Current Visit: Yes Qualifiers: Encounter type: subsequent encounter Laterality: right Qualified Code(s): S20.221D - Contusion of right back wall of thorax, subsequent encounter (2) Contusion of chest wall SNOMED Code(s): 40008621 Code(s): S20.219A - CONTUSION OF UNSPECIFIED FRONT WALL OF THORAX, INIT ENCNTR Status: Acute Current Visit: Yes Qualifiers: Encounter type: subsequent encounter Laterality: right Qualified Code(s): S20.211D - Contusion of right front wall of thorax, subsequent encounter (3) Fracture of multiple ribs SNOMED Code(s): 4317591 Code(s): S22.49XA - MULTIPLE FRACTURES OF RIBS, UNSP SIDE, INIT FOR CLOS FX Status: Acute Current Visit: Yes Qualifiers: Encounter type: subsequent encounter Fracture type: closed Laterality: right Fracture healing: with routine healing Qualified Code(s): S22.41XD - Multiple fractures of ribs, right side, subsequent encounter for fracture with routine healing - Problem List Review Problem List Initiated/Reviewed/Updated: Yes - My Orders Last 24 Hours: Active Orders 24 hr Category Date Time Status Patient Status [ADT] Routine ADT 09/27/20 17:32 Active Oxygen Therapy Adult [Oxygen Therapy] [RC] ASDIRECTED Care 09/27/20 21:45 Active Ready for Discharge [RC] PER UNIT ROUTINE Care 09/28/20 07:35 Ordered Up With Assistance [RC] BID Care 09/27/20 19:56 Active Regular Diet [DIET] Diet 09/28/20 Breakfast Active Acetaminophen/oxyCODONE [Percocet 325-5 MG] Med 09/27/20 19:57 Active See Dose Instructions PO Q4H PRN HYDROmorphone [Dilaudid] Med 09/27/20 19:59 Active 0.5 mg IVPUSH Q2H PRN Ibuprofen [Motrin] Med 09/27/20 19:56 Active 600 mg PO Q6H PRN Ondansetron [Zofran ODT] Med 09/27/20 19:59 Active 4 mg PO Q6H PRN Sodium Chloride 0.9% [Saline Flush] Med 09/27/20 14:13 Active 10 ml FLUSH ONETIME PRN Code Status [Resuscitation Status] Routine Resus Stat 09/27/20 21:41 Ordered EKG 12 Lead [EK] Stat Ther 09/27/20 12:27 Ordered Medication Orders Hydromorphone HCl (Hydromorphone 0.5 Mg/0.5 Ml Syringe) 0.5 mg IVPUSH Q2H PRN PRN Reason: Breakthrough Pain Ibuprofen (Ibuprofen 600 Mg Tab) 600 mg PO Q6H PRN PRN Reason: Pain (mild 1-3) Last Admin: 09/28/20 04:29 Dose: 600 mg Documented by: Admin: 09/27/20 20:37 Dose: 600 mg Documented by: CHRISTOPHER Ondansetron HCl (Ondansetron 4 Mg Tab.Dis) 4 mg PO Q6H PRN PRN Reason: Nausea/Vomiting Oxycodone/Acetaminophen (Acetaminophen/Oxycodone 325-5 Mg Tab) 0 tab PO Q4H PRN PRN Reason: Pain (moderate 4-6) Sodium Chloride (Sodium Chloride 0.9% 10 Ml Syringe) 10 ml FLUSH ONETIME PRN PRN Reason: IV FLUSH Last Admin: 09/27/20 14:17 Dose: 10 ml Documented by: TAYLOR - Assessment Assessment (Free Text/Narrative):: 60 y/o gentleman with rib fractures after blunt crushing injury to chest. Doing well - Plan Plan (Free Text/Narrative):: - continue pulmonary hygiene with incentive spirometer, deep breathe, cough - continue pain medication as needed - ambulate as tolerated Follow up in [facility] in one week Annabelle Fernandez MD General Surgery
--- NOTE | 2020-09-28 17:55 | PCM.DCSUM1 ---
Discharge Summary - Hospital Course Free Text/Narrative:: The patient is a 60 y/o gentleman who presented after a crush injury to the chest and was found to have multiple right broken ribs. He was admitted for pain control and O2 monitoring. He did well overnight and was discharged home on oral pain medication with follow up in his local clinic. Diagnosis: Stroke: No Modified [place] Scale: No Signif.Disability Despite Sympt.Able to Carry Out Usual Act./Duties Modified [place] Scale Score: 1 - Discharge Data Discharge Date: 09/28/20 Discharge Disposition: Home, Self-Care 01 Condition: Good - Referral to Home Health Primary Care Physician: PCP None - Discharge Diagnosis/Problem(s) (1) Contusion of back SNOMED Code(s): 88113276 ICD Code: S20.229A - CONTUSION OF UNSPECIFIED BACK WALL OF THORAX, INIT ENCNTR Status: Acute Qualifiers: Encounter type: subsequent encounter Laterality: right Qualified Code(s): S20.221D - Contusion of right back wall of thorax, subsequent encounter (2) Contusion of chest wall SNOMED Code(s): 88939393 ICD Code: S20.219A - CONTUSION OF UNSPECIFIED FRONT WALL OF THORAX, INIT ENCNTR Status: Acute Qualifiers: Encounter type: subsequent encounter Laterality: right Qualified Code(s): S20.211D - Contusion of right front wall of thorax, subsequent encounter (3) Fracture of multiple ribs SNOMED Code(s): 5151456 ICD Code: S22.49XA - MULTIPLE FRACTURES OF RIBS, UNSP SIDE, INIT FOR CLOS FX Status: Acute Qualifiers: Encounter type: subsequent encounter Fracture type: closed Laterality: right Fracture healing: with routine healing Qualified Code(s): S22.41XD - Multiple fractures of ribs, right side, subsequent encounter for fracture with routine healing - Patient Instructions Diet: Heart Healthy Diet Activity: As Tolerated, Cough & Deep Breathe, No Lifting Over 20 Pounds, No Lifting Over 25 Pounds, No Strenuous Activities Activity, Other: continue using incentive spirometer Showering/Bathing: May Shower Notify Provider of: Fever, Increased Pain, Swelling and Redness, Nausea and/or Vomiting - Discharge Plan *PRESCRIPTION DRUG MONITORING PROGRAM REVIEWED*: Not Applicable *COPY OF PRESCRIPTION DRUG MONITORING REPORT IN PATIENT [place]: Not Applicable Prescriptions/Med Rec: Ibuprofen [Motrin] 600 mg PO Q6H PRN 14 Days #60 tablet PRN Reason: Pain (Mild 1-3) traMADol HCl [Tramadol HCl] 50 mg PO Q6H PRN 14 Days #20 tablet PRN Reason: Pain (Moderate 4-6) Home Medications: Home Meds Aspirin [Ecotrin EC] 81 mg PO BEDTIME 02/05/18 [History] Glucosamine [Glucosamine Sulfate] 1 cap PO BEDTIME 02/05/18 [History] atorvaSTATin [Lipitor] 20 mg PO BEDTIME 02/05/18 [History] Ibuprofen [Motrin] 600 mg PO Q6H PRN 14 Days #60 tablet 09/28/20 [Rx] traMADol HCl [Tramadol HCl] 50 mg PO Q6H PRN 14 Days #20 tablet 09/28/20 [Rx] Referrals: Debbie Pulliam [facility] [Nurse Practitioner] - 10/05/20 10:00 am (Follow up in one week. Please check in by 9:50am.) - Discharge Summary/Plan Comment DC Time >30 min.: No - Patient Data Vitals - Most Recent: Last Vital Signs Temp 36.6 C 09/28/20 08:40 Pulse 86 09/28/20 08:40 Resp 20 09/28/20 08:40 BP 148/83 H 09/28/20 08:40 Pulse Ox 93 L 09/28/20 08:40 Weight - Most Recent: 126.598 kg I&O - Last 24 hours: Intake & Output 09/28/20 09/28/20 09/28/20 06:59 14:59 22:59 Intake Total 500 120 Balance 500 120 Lab Results - Last 24 hrs: Laboratory Results - last 24 hr 09/27/20 09/28/20 Range/Units 17:43 04:15 Urine Color Yellow (Yellow) Urine Appearance Clear (Clear) Urine pH 6.0 (5.0-8.0) Ur Specific [place] > or = 1.030 (1.005-1.030) Urine Protein Trace H (Negative) Urine Glucose (UA) Negative (Negative) Urine Ketones Negative (Negative) Urine Occult Blood Negative (Negative) Urine Nitrite Negative (Negative) Urine Bilirubin Negative (Negative) Urine Urobilinogen 0.2 (0.2-1.0) Ur Leukocyte Esterase Negative (Negative) Urine RBC Not seen (0-5) /hpf Urine WBC 0-5 (0-5) /hpf Ur Epithelial Cells Not seen (0-5) /hpf Urine Bacteria Few (FEW) /hpf Urine Mucus Many H (FEW) /hpf SARS-CoV-2 RNA (JORGE A) Negative (NEGATIVE) Med Orders - Current: Current Medications Discontinued Medications Hydromorphone HCl (Hydromorphone 0.5 Mg/0.5 Ml Syringe) 0.5 mg IVPUSH Q2H PRN PRN Reason: Breakthrough Pain Sodium Chloride (Normal Saline) 1,000 mls @ 999 mls/hr IV ONETIME ONE Stop: 09/27/20 13:28 Last Admin: 09/27/20 14:23 Dose: 999 mls/hr Documented by: Ibuprofen (Ibuprofen 600 Mg Tab) 600 mg PO Q6H PRN PRN Reason: Pain (mild 1-3) Last Admin: 09/28/20 04:29 Dose: 600 mg Documented by: Iopamidol (Iopamidol 612 Mg/Ml 100 Ml Bottle) 80 ml IVPUSH ONETIME ONE Stop: 09/27/20 12:35 Last Admin: 09/27/20 19:54 Dose: Not Given Documented by: Iopamidol (Iopamidol 612 Mg/Ml 50 Ml Sdv) 50 ml IVPUSH ONETIME ONE Stop: 09/27/20 14:14 Last Admin: 09/27/20 14:17 Dose: 50 ml Documented by: Iopamidol (Iopamidol 612 Mg/Ml 100 Ml Bottle) 100 ml IVPUSH ONETIME ONE Stop: 09/27/20 14:14 Last Admin: 09/27/20 14:17 Dose: 100 ml Documented by: Ondansetron HCl (Ondansetron 4 Mg Tab.Dis) 4 mg PO Q6H PRN PRN Reason: Nausea/Vomiting Oxycodone/Acetaminophen (Acetaminophen/Oxycodone 325-5 Mg Tab) 0 tab PO Q4H PRN PRN Reason: Pain (moderate 4-6) Sodium Chloride (Sodium Chloride 0.9% 10 Ml Syringe) 10 ml FLUSH ONETIME PRN PRN Reason: IV FLUSH Last Admin: 09/27/20 14:24 Dose: 10 ml Documented by: Sodium Chloride (Sodium Chloride 0.9% 10 Ml Syringe) 10 ml FLUSH ONETIME PRN PRN Reason: IV FLUSH Last Admin: 09/27/20 14:17 Dose: 10 ml Documented by:
== END 2020-09-28 10:52 | disposition home or self-care (01) ==
LOC: JD.ED 12:18 → JD.MS 17:32
PROVIDERS: ADMIT Surgery; ATTEND Surgery
DX: S22.41XA Multiple fractures of ribs, right side, initial encounter for closed fracture (principal); S20.221A Contusion of right back wall of thorax, initial encounter; Z79.82 Long term (current) use of aspirin; Z79.899 Other long term (current) drug therapy; Z90.49 Acquired absence of other specified parts of digestive tract; Z20.822 Contact with and (suspected) exposure to COVID-19
CPT/HCPCS: 36415; 71260; 74177; 81001; 83605; 84484; 85025; 87635; 93005; 99285; A9270; J7030; Q9967; 93010; G0378; U0002